=== PATIENT | female | born 2000 | race Two or more races ===

== ENCOUNTER 2021-12-19 09:25 | Outpatient (CLI) | payer OTHER | END 2021-12-19 10:45 | disposition home or self-care (01) | LOC: PRENATAL 09:25 | PROVIDERS: ATTEND Obstetrics & Gynecology Maternal & Fetal Medicine | DX: O36.80X0 Pregnancy with inconclusive fetal viability, not applicable or unspecified (principal) ==

== ENCOUNTER 2022-01-31 18:24 | Emergency (ER) | payer OTHER ==
[~2022-01-31] VITALS: Ht 154.9 cm; Wt 52.2 kg
[2022-01-31] MEDS ORDERED: MUCINEX D ER 61 EACH PO (19:43)
[2022-01-31] MEDS ORDERED: ZITHROMAX TRI-500 MG PO (19:43)
== END 2022-01-31 19:57 | disposition home or self-care (01) ==
LOC: ER 18:24 → EMR PED 18:26
DX: O99.512 Diseases of the respiratory system complicating pregnancy, second trimester (principal); Z3A.18 18 weeks gestation of pregnancy; A49.3 Mycoplasma infection, unspecified site

== ENCOUNTER 2022-02-14 17:01 | Outpatient (CLI) | payer OTHER ==
[~2022-02-14 17:01] MED LIST: MUCINEX D ER 61 EACH PO; ZITHROMAX TRI-500 MG PO
== END 2022-02-15 10:23 | disposition home or self-care (01) ==
LOC: OBS/DEL 17:01
PROVIDERS: ATTEND Specialist
DX: O47.02 False labor before 37 completed weeks of gestation, second trimester (principal); Z3A.20 20 weeks gestation of pregnancy; R10.2 Pelvic and perineal pain

== ENCOUNTER 2022-02-15 13:00 | Outpatient (CLI) | payer OTHER | END 2022-02-15 14:12 | disposition home or self-care (01) | LOC: PRENATAL 13:00 | PROVIDERS: ATTEND Obstetrics & Gynecology Maternal & Fetal Medicine | DX: O35.0XX0 Maternal care for (suspected) central nervous system malformation in fetus, not applicable or unspecified (principal); O35.3XX0 Maternal care for (suspected) damage to fetus from viral disease in mother, not applicable or unspecified; Z3A.19 19 weeks gestation of pregnancy ==

== ENCOUNTER 2022-05-07 10:17 | Outpatient (CLI) | payer OTHER | END 2022-05-07 11:26 | disposition home or self-care (01) | LOC: PRENATAL 10:17 | PROVIDERS: ATTEND Obstetrics & Gynecology Maternal & Fetal Medicine | DX: O26.849 Uterine size-date discrepancy, unspecified trimester (principal); Z3A.32 32 weeks gestation of pregnancy ==

== ENCOUNTER 2022-06-11 23:29 | Inpatient (IN) | payer OTHER ==
[~2022-06-11] VITALS: Ht 157.5 cm; Wt 64.4 kg
[2022-06-13] MEDS ORDERED: SYNTHROID50 MCG (13:10)
[2022-06-13] MEDS ORDERED: LEVO-T25 MCG (13:11)
== END 2022-06-13 15:55 | disposition home or self-care (01) | DRG 807 ==
LOC: OB/GYN 23:29 → LDR 23:29 → OB/GYN 06-12 03:05
PROVIDERS: ADMIT Specialist; ATTEND Specialist
PROC: 4A1HXCZ Monitoring of Products of Conception, Cardiac Rate, External Approach (ICD-10-PCS; 2022-06-11)
PROC: 10E0XZZ Delivery of Products of Conception, External Approach (ICD-10-PCS; principal; 2022-06-12)
PROC: 0W8NXZZ Division of Female Perineum, External Approach (ICD-10-PCS; 2022-06-12)
DX: O80 Encounter for full-term uncomplicated delivery (principal); Z37.0 Single live birth; Z3A.37 37 weeks gestation of pregnancy; Z20.822 Contact with and (suspected) exposure to COVID-19

== ENCOUNTER 2025-01-24 00:59 | Emergency (ER) | payer OTHER ==
[~2025-01-24] VITALS: Ht 154.9 cm; Wt 52.2 kg
[~2025-01-24 00:59] MED LIST changes: +LEVO-T25 MCG; +SYNTHROID50 MCG
[2025-01-24 01:08] VITALS: BP 108/62; O2SAT 98
[2025-01-24] MEDS ORDERED: RINGERS SOLUTION,LACTATED 1,000 ML IV ONE (02:30)
[2025-01-24 02:56] LABS: HEMOGLOBIN 13.3 g/dL (12.0-15.00); MEAN CELL VOLUME 99.1 fL (80.00-100.00); MEAN CORPUSCULAR HEMOGLOBIN 34.6 pg (27.00-32.0); MEAN CORPUSCULAR HGB CONC 34.9 g/dl (32.0-36.0); PLATELET COUNT 237 K/uL (150-450); RED BLOOD COUNT 3.84 M/uL (4.00-6.00); RED CELL DISTRIBUTION WIDTH 12.7 % (11.5-14.5)
[2025-01-24 03:11] LABS: PARTIAL THROMBOPLASTIN TIME 27.5 SECONDS (22.0-34.0); PROTHROMBIN TIME 10.9 SECONDS (9.0-11.5)
[2025-01-24 03:30] LABS: CREATININE SERUM 0.93 mg/dL (0.55-1.02); GFR 74.71; POTASSIUM 4.22 mEq/L (3.5-5.1)
[2025-01-24 03:45] LABS: PH,URINE 5.5 (5.0-8.0); URINE APPEARANCE Turbid; URINE BILIRRUBIN Small (NEGATIVE); URINE BLOOD Large; URINE COLOR Red; URINE GLUCOSE Negative (NEGATIVE); URINE KETONE Negative (NEGATIVE); URINE LEUKOCYTE Small; URINE NITRATE Negative; URINE UROBILINOGEN 0.2 E.U./dl
[2025-01-24 03:48] LABS: URINE BACTERIA 3075.8 uL (0.0-1933); URINE EPITHELIAL CELLS 126.4 uL (0.0-38.8); URINE WBC 79.9 uL (0.0-23.2)
[2025-01-24 04:04] LABS: URINE CAST 0.69 uL (0.0-1.40); URINE PROTEIN 100 (NEGATIVE); URINE RBC > 10558.9 uL (0.0-20.8)
== END 2025-01-24 06:18 ==
LOC: ER 01:00
PROVIDERS: General Practice
DX: O20.8 Other hemorrhage in early pregnancy (principal); Z3A.01 Less than 8 weeks gestation of pregnancy